=== PATIENT | female | born 1975 | race Caucasian/White ===

== ENCOUNTER 2017-10-12 20:11 | Emergency (ER) | payer MEDICAID, OTHER ==
[~2017-10-12] VITALS: Ht 167.6 cm; Wt 68.0 kg
[2017-10-12 20:28] VITALS: BP 107/82
[2017-10-12] MEDS ORDERED: diphenhdrAMINE HCL 25 MG CAP PO ONE (23:45)
[2017-10-12] MEDS ORDERED: DEXAMETHASONE SOD PHOS 10MG/1ML VIAL INJ IM ONE (23:45)
[2017-10-12] MEDS ORDERED: FAMOTIDINE 20 MG TAB PO ONE (23:45)
== END 2017-10-13 00:21 | disposition home or self-care (01) ==
LOC: ER 20:18
DX: T78.40XA Allergy, unspecified, initial encounter (principal); L25.0 Unspecified contact dermatitis due to cosmetics
CPT/HCPCS: 96372; 99283; J1100